=== PATIENT | female | born 1970 | race Hispanic/Latino ===

== ENCOUNTER 2021-04-02 13:32 | Emergency (ER) | payer SELFPAY ==
--- NOTE | ~2021-04-02 | XR_ITS ---
EXAMINATION: XR chest 2V DATE: 04/02/2021 14:38 INDICATION: Anterior chest pain TECHNIQUE: Frontal and lateral views of the chest are obtained COMPARISON: None available FINDINGS: The lungs are free of acute opacities. There is no pleural effusion or pneumothorax. The ca rdiomediastinal silhouette is normal. There is moderate thoracic spondylosis. IMPRESSION: 1. No acute cardiopulmonary abnormality. Reviewed, dictated and finalized at location A.
--- NOTE | ~2021-04-02 | CT_ITS ---
EXAMINATION: CTA chest PE protocol EXAM DATE: 04/02/2021 15:00 INDICATION: Chest pain. Shortness of breath. Symptoms 2 days. TECHNIQUE: Spiral CTA of the chest (pulmonary arteries) was performed with 100 cc Omnipaque 350 intr avenous contrast injection. Images were acquired during the pulmonary arterial phase. Coronal maxi mum intensity projection 3D-reconstructions were created by the technologist on dedicated workstation . Axial, coronal and sagittal reformatted images were reviewed. The dose-length product (DLP) for t his examination was 493.71 mGy-cm. The exposure was tailored according to patient size (auto mA exp osure control), and iterative reconstruction (ASIR) was used as additional dose reduction technique. There is no prior study for comparison. FINDINGS: Pulmonary arteries are well opacified and without intraluminal filling defects. No thora cic aortic dissection. Dependent subsegmental atelectasis. Small pericardial effusion. Tracheobron chial tree is patent. There is no mediastinal, hilar or axillary lymphadenopathy. There is no pne umothorax. There is cardiomegaly. There is mild coronary arterial calcification, arterial sclerosi s. 1.4 cm fluid density lesion in the left liver lobe consistent with cyst. There is hepatic steatos is. The bones are unremarkable. IMPRESSION: 1. Cardiomegaly. Small pericardial effusion. 2. Subsegmental atelectasis. 3. Hepatic steatosis. 4. No pulmonary emboli. Reviewed, dictated and finalized at location B.
--- NOTE | 2021-04-02 13:33 | ECG_ITS ---
Measurements Intervals [place] Rate: 93 P: 37 MN: 144 QRS: -21 QRSD: 80 T: 43 QT: 361 QTc: 450 Interpretive Statements SINUS RHYTHM DELAYED PRECORDIAL R/S TRANSITION BORDERLINE T WAVE ABNORMALITY- ANTERIOR LEADS BASELINE ARTIFACT- I, II ,III, AVL, AVF BORDERLINE ECG Electronically Signed On 04-02-2021 13:52:05 CDT by Jose Diana D.O.
[2021-04-02 13:34] VITALS: BP 156/97; PULSE 96; RESP 18; TEMP 36.2; O2SAT 99
[2021-04-02 13:50] LABS: Basophils Percent Auto 0.4 % (0.2-1.2); Eosinophils Absolute Auto 0.1 K/mm3 (0-0.3); Eosinophils Percent Auto 1.9 % (0-4.4); Hematocrit 46.6 % (37.0-47.0); Hemoglobin 15.5 g/dL (12.0-15.0); Immature Granulocyte Absolute 0.03 K/mm3 (0.00-0.031); Immature Granulocyte Percent A 0.4 % (0-0.5); Lymphocytes Absolute Auto 2.22 K/mm3 (0.9-3.2); Lymphocytes Percent Auto 30.7 % (18.3-44.2); Mean Corpuscular HGB Conc 33.3 g/dl (32-36); Mean Corpuscular Hemoglobin 32.5 pg (26-34); Mean Corpuscular Volume 97.7 fl (80-100); Mean Platelet Volume 9.8 fl (7.4-10.4); Monocytes Absolute Auto 0.5 K/mm3 (0.1-0.6); Monocytes Percent Auto 7.1 % (2.6-8.5); Neutrophils Absolute Auto 4.3 K/mm3 (1.3-6.7); Neutrophils Percent Auto 59.5 % (45.5-73.1); Platelet Count Result 206 k/mm3 (150-375); Red Blood Count 4.77 M/mm3 (4.2-5.4); Red Cell Distribution Width 12.1 % (11.5-14.5); White Blood Count 7.2 K/mm3 (4.5-10.0)
[2021-04-02 14:01] VITALS: BP 167/107; PULSE 78; RESP 23; O2SAT 99
[2021-04-02 14:01] LABS: INR 0.8; Prothrombin Time 11.4 Seconds (11.1-14.7)
[2021-04-02 14:02] LABS: Partial Thromboplastin Time 26.4 SECONDS (22.3-36.8)
[2021-04-02 14:05] LABS: Anion Gap 6 mmol/L (8-16); Blood Urea Nitrogen 13 mg/dL (7-17); Calcium 9.4 mg/dL (8.4-10.2); Carbon Dioxide 31 mmol/L (22-30); Chloride 103 mmol/L (98-107); Estimated CRCL calculation 93 ml/min; Estimated Glomerular Filt Rate > 60; Glucose 104 mg/dL (65-110); Potassium 3.3 mmol/L (3.4-5.0); Sodium 140 mmol/L (137-145)
[2021-04-02 14:17] LABS: Troponin I < 0.012 ng/mL (0.000-0.034)
[2021-04-02] MEDS: MORPHINE SULFATE (*CRX) 4 MG/ML INJ IV PUSH (15:04)
[2021-04-02] MEDS: ASPIRIN 81 MG CHEWABLE TABLET 324 MG PO (15:05)
[2021-04-02 15:06] VITALS: BP 148/108; PULSE 76; RESP 15; O2SAT 97
--- NOTE | 2021-04-02 16:37 | ED.CHESTPAIN ---
HPI - Chest Pain General Chief Complaint: Chest Pain Stated Complaint: chest pain Time Seen by Provider: 04/02/21 13:54 History of Present Illness HPI narrative: Patient is a 51-year-old female who presents ER with left-sided chest pain. Began 2 days ago. Began in her shoulder and moves down into her right breast. Is worse with any movement and also a deep breath. No known trauma. No previous coronary disease. Denies fevers or chills or sweats. No productive cough. No exertional dyspnea. Has not found any alleviating factors. Has not tried any oral medications. Related Data Allergies Allergy/AdvReac Type Severity Reaction Status Date / Time No Known Allergies Allergy Verified 04/02/21 14:31 Review of Systems Review of Systems: All systems reviewed & are unremarkable except as noted in HPI and below Constitutional: Constitutional: Denies chills, Denies fever(s) and Denies weakness ENT: Denies nasal congestion and Denies sore throat Cardiovascular: Cardiovascular: Reports chest pain, Denies rapid heart rate and Reports radiating jaw, neck or arm pain Respiratory: Respiratory: Denies cough, Reports dyspnea and Denies wheezing Gastrointestinal: Gastrointestinal: Denies abdominal pain, Denies nausea and Denies vomiting PMFSH Past Medical History Medical History (Updated 04/02/21 @ 16:42 by Yuan Walton MD) Cholelithiasis Surgical History Surgical History (Updated 04/02/21 @ 16:39 by Yuan Walton MD) No pertinent past surgical history Social History Social History (Updated 04/02/21 @ 16:39 by Yuan Walton MD) Smoking status: Never smoker Exam Narrative: GENERAL: Uncomfortable-appearing, well-nourished, and in no acute distress. HEAD: Normocephalic, atraumatic. EYES: PERRL and EOMI. ENT: Mucous membranes moist. NECK: Supple. CHEST: Clear to auscultation. No respiratory distress. Tender palpation left anterior chest wall anterior to the breast. HEART: Regular rate and rhythm. Normal peripheral pulses. ABDOMEN: Soft, nontender, nondistended. EXTREMITIES: Normal range of motion. No edema. NEURO: Alert and oriented x3. PSYCH: Normal mood and affect. Course Course Emergency Course: Patient received morphine for her discomfort. Troponin negative. CTA without evidence of PE or rib fracture. Discharge home with follow-up with PCP. Vital Signs Vital signs: Vital Signs Temperature 97.1 F L 04/02/21 13:34 Pulse Rate 96 04/02/21 13:34 Respiratory Rate 18 04/02/21 13:34 Blood Pressure 156/97 H 04/02/21 13:34 Pulse Oximetry 99 04/02/21 13:34 Temperature 97.1 F L 04/02/21 13:34 Pulse Rate 76 04/02/21 15:06 Respiratory Rate 15 04/02/21 15:06 Blood Pressure 148/108 H 04/02/21 15:06 Pulse Oximetry 97 04/02/21 15:06 MDM - Chest Pain Lab Data Result diagrams: 04/02/21 13:43 04/02/21 13:43 Labs: Lab Results 04/02/21 04/02/21 04/02/21 Range/Units 13:43 13:43 13:43 WBC 7.2 (4.5-10.0) K/mm3 RBC 4.77 (4.2-5.4) M/mm3 Hgb 15.5 H (12.0-15.0) g/dL Hct 46.6 (37.0-47.0) % MCV 97.7 (80-100) fl MCH 32.5 (26-34) pg MCHC 33.3 (32-36) g/dl RDW 12.1 (11.5-14.5) % Plt Count 206 (150-375) k/mm3 MPV 9.8 (7.4-10.4) fl Immature Gran % (Auto) 0.4 (0-0.5) % Neut % (Auto) 59.5 (45.5-73.1) % Lymph % (Auto) 30.7 (18.3-44.2) % [place] % (Auto) 7.1 (2.6-8.5) % Eos % (Auto) 1.9 (0-4.4) % Baso % (Auto) 0.4 (0.2-1.2) % Lymph # (Auto) 2.22 (0.9-3.2) K/mm3 [place] # (Auto) 0.5 (0.1-0.6) K/mm3 Eos # (Auto) 0.1 (0-0.3) K/mm3 Baso # (Auto) 0.0 (0.0-0.1) K/mm3 Abs Immat Gran (auto) 0.03 (0.00-0.031) K/mm3 Absolute Neuts (auto) 4.3 (1.3-6.7) K/mm3 Absolute Nucleated RBC 0.0 (0.0-0.012) K/mm3 Nucleated RBC % 0.0 (0.0-0.2) % PT 11.4 (11.1-14.7) Seconds INR 0.8 APTT 26.4 (22.3-36.8) SECONDS Sodium 140 (137
[2021-04-02] MEDS: ONDANSETRON HCL ODT 4 MG TABLET (17:18)
[2021-04-02 17:20] VITALS: BP 148/98; PULSE 70; RESP 16; O2SAT 96
[2021-04-02 17:21] LABS: Troponin I < 0.012 ng/mL (0.000-0.034)
== END 2021-04-02 17:20 | disposition home or self-care (01) ==
PROVIDERS: Emergency Provider Emergency Medicine
DX: R07.89 Other chest pain (principal); I51.7 Cardiomegaly; K76.0 Fatty (change of) liver, not elsewhere classified; R94.31 Abnormal electrocardiogram [ECG] [EKG]
CPT/HCPCS: 36415; 71046; 71275; 80048; 84484; 85025; 85610; 85730; 93005; 96374; 96375; 99284; A9270; J2270; Q9967